=== PATIENT | male | born 1965 | race Caucasian/White ===

== ENCOUNTER 2016-08-14 22:08 | Emergency (ER) | payer BC ==
[~2016-08-14] VITALS: Ht 180.3 cm; Wt 107.2 kg
[2016-08-14] MEDS ORDERED: LORTAB 5-325 MG1 TAB PO (22:23)
[2016-08-14] MEDS ORDERED: PRINIVIL5 MG PO (22:23)
[2016-08-14 23:08] VITALS: BP 136/89
== END 2016-08-14 23:10 | disposition home or self-care (01) | DRG 125 ==
LOC: ED 22:08
DX: S05.02XA Injury of conjunctiva and corneal abrasion without foreign body, left eye, initial encounter (principal); I10 Essential (primary) hypertension; X58.XXXA Exposure to other specified factors, initial encounter

== ENCOUNTER 2016-08-22 10:51 | Emergency (ER) | payer BC ==
[~2016-08-22] VITALS: Ht 180.3 cm; Wt 106.8 kg
[~2016-08-22 10:51] MED LIST: LORTAB 5-325 MG1 TAB PO; PRINIVIL5 MG PO
[2016-08-22] MEDS ORDERED: CIALIS5 MG PO (11:21)
[2016-08-22] MEDS ORDERED: INDOMETHACIN25 MG PO (11:23)
[2016-08-22] MEDS ORDERED: TRAMADOL HYDROC50 MG PO (11:23)
[2016-08-22] MEDS ORDERED: COLCHICINE0.6 M2 PO (11:23)
[2016-08-22] MEDS ORDERED: CIPROFLOXACN750 MG PO (11:23)
[2016-08-22 11:40] VITALS: BP 144/84
== END 2016-08-22 11:40 | disposition home or self-care (01) | DRG 556 ==
LOC: ED 10:51
DX: M79.674 Pain in right toe(s) (principal); I10 Essential (primary) hypertension; M54.5 Low back pain

== ENCOUNTER 2017-03-08 15:18 | Emergency (ER) | payer BC ==
[~2017-03-08] VITALS: Ht 180.3 cm; Wt 110.0 kg
[~2017-03-08 15:18] MED LIST changes: +CIALIS5 MG PO; +CIPROFLOXACN750 MG PO; +COLCHICINE0.6 M2 PO; +INDOMETHACIN25 MG PO; +TRAMADOL HYDROC50 MG PO
[2017-03-08 16:00] LABS: HEMATOCRIT 48.4 % (39.0-50.0); HEMOGLOBIN 16.4 g/dl (14.0-18.0); IMMATURE GRANULOCYTES 0.5 % (0.0-1.0); MEAN CELL VOLUME 89.5 fL CALC (80.0-100.0); MEAN CORPUSCULAR HGB 30.3 pG CALC (26.0-32.0); MEAN CORPUSCULAR HGB CONC 33.9 g/L CALC (32.0-36.0); NEUT# 16.26 thou/uL (1.82-7.42); RED BLOOD COUNT 5.41 mill/uL (4.70-6.10); RED CELL DISTRI WIDTH 13.2 % (11.5-15.5)
[2017-03-08 16:30] LABS: ALBUMIN 4.9 g/dL (3.2-5.0); ALKALINE PHOSPHATASE 115 u/l (38-126); AMYLASE 75 u/l (30-110); ANION GAP 20 (6-22 (CALC)); BILIRUBIN, TOTAL 2.7 mg/dL (0.0-1.4); BUN 18 mg/dL (9-20); BUN/CREATININE RATIO 15 (12-20 (CALC)); CARBON DIOXIDE 25 mmol/l (22-30); CHLORIDE 103 mmol/l (95-108); CREATININE 1.2 mg/dL (0.7-1.3); GFR > 60 ML/MIN (>=60 (CALC)); GFR FOR AFR.AMER. > 60 ML/MIN (>=60 (CALC)); GLUCOSE 143 mg/dL (75-110); LIPASE 39 u/l (23-300); SGOT/AST 25 u/l (17-59); SGPT/ALT 43 u/l (21-72); SODIUM 144 mmol/l (137-146); TOTAL PROTEIN 8.3 g/dL (6.3-8.2)
[2017-03-08 17:20] LABS: URINE BLOOD DIPSTICK NEGATIVE (NEGATIVE); URINE GLUCOSE - DIPSTICK NEGATIVE (NEGATIVE); URINE KETONE 15 mg/dL (NEGATIVE); URINE LEUK ESTERASE TRACE (NEGATIVE); URINE NITRITE - DIPSTICK NEGATIVE (Negative); URINE PH 6.5 (4.5-8.0); URINE PROTEIN - DIPSTICK TRACE mg/dL (NEG-TRACE); URINE SPECIFIC GRAVITY 1.025; URINE UROBILINOGEN - DIPSTICK 0.2 E.U./dL (0.2)
[2017-03-08 17:22] LABS: URINE BILIRUBIN - DIPSTICK NEGATIVE (NEGATIVE); URINE CLARITY CLEAR; URINE COLOR AMBER
[2017-03-08] MEDS ORDERED: IMODIUM2 MG PO (17:54)
[2017-03-08] MEDS ORDERED: ZOFRAN ODT4 MG PO (17:54)
[2017-03-08 18:27] VITALS: BP 125/65
== END 2017-03-08 18:27 | disposition home or self-care (01) | DRG 392 ==
LOC: ED 15:18
PROVIDERS: Emergency Medicine
DX: K52.9 Noninfective gastroenteritis and colitis, unspecified (principal); I10 Essential (primary) hypertension; F17.210 Nicotine dependence, cigarettes, uncomplicated